=== PATIENT | female | born 1985 | race American Indian/Alaskan Native ===

== ENCOUNTER 2017-11-06 09:51 | Outpatient (CLI) | payer OTHER ==
--- NOTE | 2017-11-07 10:38 | Ultrasound Report ---
BILATERAL BREAST ULTRASOUND: 11/06/17 09:51:00 CLINICAL: 32 old with bilateral breast pain. COMPARISON: None. FINDINGS: Ultrasound of both breasts(including all four quadrants and the retroareolar area of each breast) was performed and demonstrated normal fibroglandular structures are normal fatty structures. No mass, cyst or shadowing. IMPRESSION: Normal bilateral breast ultrasound. No explanation for bilateral breast pain. BI-RADS 1 - - Negative RECOMMENDATION: Clinical followup and routine mammographic screening based on ACS guidelines. Consider diagnostic mammography if the pain persists and particularly if there is focal pain.
== END 2017-11-06 09:52 | disposition home or self-care (01) ==
LOC: US 09:51
PROVIDERS: ATTEND Family Medicine
DX: N64.4 Mastodynia (principal)

== ENCOUNTER 2018-01-02 11:00 | Outpatient (CLI) | payer OTHER | END 2018-01-02 11:01 | disposition home or self-care (01) | LOC: SLR 11:00 | PROVIDERS: ATTEND Otolaryngology | DX: G47.30 Sleep apnea, unspecified (principal) | CPT/HCPCS: 95810 ==

== ENCOUNTER 2018-01-09 11:00 | Outpatient (CLI) | payer OTHER | END 2018-01-09 11:01 | disposition home or self-care (01) | LOC: SLR 11:00 | PROVIDERS: ATTEND Otolaryngology | DX: G47.30 Sleep apnea, unspecified (principal) | CPT/HCPCS: 95811 ==

== ENCOUNTER 2018-05-08 08:29 | Day surgery (SDC) | payer OTHER ==
[2018-05-08] MEDS ORDERED: NACL 0.9% 1000 ML 1,000 ML IV SCH (09:30)
--- NOTE | 2018-05-08 09:55 | Anesthesia Day of Surgery ---
Anesthesia Day of Surgery - Day of Surgery Patient Examined: Yes Patient H&P Reviewed: Yes Patient is NPO: Yes Beta Blockers: No
--- NOTE | 2018-05-08 09:56 | Anesthesia Consultation ---
Anesthesia Consult and Med Hx - Airway Anesthetic Teeth Evaluation: Good ROM Head & Neck: Adequate Mental/Hyoid Distance: Adequate Mallampati Class: Class III Intubation Access Assessment: Possibly Difficult - Pulmonary Exam CTA: Yes - Cardiac Exam Cardiac Exam: No Murmur - Pre-Operative Health Status ASA Pre-Surgery Classification: ASA3 Proposed Anesthetic Plan: MAC - Pulmonary Hx Smoking: No Hx Asthma: No Hx Respiratory Symptoms: No SOB: No COPD: No Home Oxygen Therapy: No Hx Pneumonia: No Hx Sleep Apnea: Yes - Cardiovascular System Hx Heart Attack/AMI: No Hx Angina: No Hx Percutaneous Transluminal Coronary Angioplasty (PTCA): No Hx Cardia Arrhythmia: No Hx Pacemaker: No Hx Internal Defibrillator: No Hx Valvular Heart Disease: No Hx Heart Murmur: No Hx Peripheral Vascular Disease: No - Central Nervous System Hx Neuromuscular Disorder: No Hx Seizures: No CVA: No Hx Back Pain: No Hx Psychiatric Problems: No - Gastrointestinal Hx Ulcer: No Hx Gastroesophageal Reflux Disease: No - Endocrine Hx Renal Disease: No Hx End Stage Renal Disease: No Hx Cirrhosis: No Hx Liver Disease: No Hx Insulin Dependent Diabetes: No Hx Non-Insulin Dependent Diabetes: Yes Hx Hypothyroidism: No Hx Hyperthyroidism: No - Hematic Hx Anemia: No - Other Systems Hx Alcohol Use: No Hx Substance Use: No Hx Cancer: No Hx Obesity: Yes
--- NOTE | 2018-05-08 09:57 | Anesthesia Day of Surgery ---
Anesthesia Day of Surgery - Day of Surgery Patient Examined: Yes Patient H&P Reviewed: Yes Patient is NPO: Yes Beta Blockers: No
[2018-05-08] MEDS ORDERED: XYLOCAINE 2% INFILTRATI ONE (10:15)
[2018-05-08] MEDS ORDERED: VERSED ONE (10:15)
[2018-05-08] MEDS ORDERED: DIPRIVAN 10 MG/ML IV ONE (10:16)
--- NOTE | 2018-05-08 10:35 | Operative Report ---
PREOPERATIVE DIAGNOSES: Morbid obesity. POSTOPERATIVE DIAGNOSES: Small hiatal hernia, morbid obesity. PROCEDURE: Esophagogastroduodenoscopy. ANESTHESIA: MAC. COMPLICATIONS: None. BLEEDING: None. SPECIMENS: None. INDICATIONS: The patient is a 33-year-old female, who with a history of morbid obesity, refractory to diet and exercise, she wishes for weight loss operation. She is here for preoperative EGD. Informed consent was obtained. DESCRIPTION OF PROCEDURE: The patient was brought to the operating suite where she was placed in left lateral decubitus position. MAC anesthesia was started and a bite block was placed. A time-out was called. A standard adult gastroscope was then inserted into the oropharynx, down the esophagus, into the stomach. On retroflexion view, she was noted to have a small hiatal hernia. There were no abnormalities up to the level of D1. The air was then desufflated. The gastroscope was removed. The patient tolerated the procedure well and was transferred to the PACU in stable condition. [facility]# [id number]/[id number]
[2018-05-08 11:17] VITALS: BP 110/70
== END 2018-05-08 08:30 | disposition home or self-care (01) ==
LOC: GIO 08:29
PROVIDERS: ATTEND Specialist
DX: E66.01 Morbid (severe) obesity due to excess calories (principal); K44.9 Diaphragmatic hernia without obstruction or gangrene; K21.9 Gastro-esophageal reflux disease without esophagitis; G47.33 Obstructive sleep apnea (adult) (pediatric); I10 Essential (primary) hypertension; E11.9 Type 2 diabetes mellitus without complications; G43.909 Migraine, unspecified, not intractable, without status migrainosus; Z68.38 Body mass index [BMI] 38.0-38.9, adult; Z79.899 Other long term (current) drug therapy; Z99.89 Dependence on other enabling machines and devices
CPT/HCPCS: 43235; 81025; 82962; J2250; J2704; J7030